=== PATIENT | female | born 1975 | race Hispanic/Latino ===

== ENCOUNTER 2019-03-29 07:03 | Day surgery (SDC) | payer MEDICARE ==
[~2019-03-29] VITALS: Ht 157.5 cm; Wt 92.1 kg
[2019-03-29] VITALS (12 sets, daily range): BP systolic 102–135; BP diastolic 70–93
[~2019-03-29 07:03] MED LIST: BUPR1PAT20 TD; ESOM20CA39 PO; GABA-531 PO; IBUP-2070 PO; TIZA4CAP8 PO
[2019-03-29] MEDS ORDERED: SODIUM CHLORIDE 0.9% 1000ML 1,000 ML IV ONE (07:14)
[2019-03-29] MEDS ORDERED: PROPOFOL 10 MG/ML 20ML VIAL IV ONE (09:07)
== END 2019-03-29 10:30 | disposition home or self-care (01) ==
LOC: DAH 07:03 → ENDO 07:03
PROVIDERS: ATTEND Surgery
DX: K21.9 Gastro-esophageal reflux disease without esophagitis (principal); J45.909 Unspecified asthma, uncomplicated; E66.01 Morbid (severe) obesity due to excess calories; Z68.37 Body mass index [BMI] 37.0-37.9, adult; Z79.899 Other long term (current) drug therapy; Z98.890 Other specified postprocedural states; Z87.891 Personal history of nicotine dependence; Z83.3 Family history of diabetes mellitus; Z82.49 Family history of ischemic heart disease and other diseases of the circulatory system
CPT/HCPCS: 43235; 81025; 93005; A4606; J2704; J7030